=== PATIENT | male | born 1960 | race Caucasian/White ===

== ENCOUNTER 2017-04-05 15:37 | Emergency (ER) | payer OTHER ==
[~2017-04-05] VITALS: Ht 175.3 cm; Wt 81.7 kg
[2017-04-05] MEDS ORDERED: NORCO 5-325 TA1 EACH PO (17:28)
[2017-04-05] MEDS ORDERED: KEFLEX500 MG PO (17:28)
[2017-04-05 18:03] VITALS: BP 135/79
== END 2017-04-05 18:03 | disposition home or self-care (01) ==
LOC: ER 15:37
DX: S68.123A Partial traumatic metacarpophalangeal amputation of left middle finger, initial encounter (principal); Z88.1 Allergy status to other antibiotic agents; W20.8XXA Other cause of strike by thrown, projected or falling object, initial encounter; Y93.89 Activity, other specified; Y92.89 Other specified places as the place of occurrence of the external cause; Y99.0 Civilian activity done for income or pay